=== PATIENT | female | born 1955 | race Caucasian/White ===

== ENCOUNTER 2020-04-27 08:20 | Outpatient (CLI) | payer MEDICARE ==
--- NOTE | 2020-04-27 14:44 | NM ---
NUCLEAR IMAGING BRAIN IMAGING: HISTORY: Parkinson's disease. TECHNIQUE: A DaTscan with axial tomographic images of the brain was obtained 3 hours following the intravenous a dministration of 4.8 mCi Iodine 123 Ioflupane. The patient was pretreated with 130 mcg of potassium iodide orally 1 hour prior to the injection. FINDINGS: There is loss of uptake in the posterior aspects of the striata bilaterally. IMPRESSION: Findings are consistent with Parkinsonian syndrome. POS: AH
== END 2020-04-27 08:21 | disposition home or self-care (01) ==
LOC: NM 08:20
PROVIDERS: ATTEND Psychiatry & Neurology Neurology
DX: G20 Parkinson's disease (principal)
CPT/HCPCS: 78803; A9584

== ENCOUNTER 2020-05-09 09:50 | Outpatient (CLI) | payer MEDICARE | END 2020-05-09 09:51 | disposition home or self-care (01) | LOC: DTY/OP 09:50 | PROVIDERS: ATTEND Specialist | DX: Z01.818 Encounter for other preprocedural examination (principal); E66.01 Morbid (severe) obesity due to excess calories | CPT/HCPCS: 97802 ==

== ENCOUNTER 2020-05-14 12:32 | Outpatient (CLI) | payer MEDICARE, OTHER ==
[2020-05-15 11:07] LABS: SARS-CoV-2 MS2 Positive; SARS-CoV-2 N Gene Negative; SARS-CoV-2 S Gene Negative; SARS-CoV-2 by NAA Not Detected (NotDetected); SARS-CoV-2 orf1ab Negative
== END 2020-05-14 12:33 | disposition home or self-care (01) ==
LOC: LABBT 12:32
PROVIDERS: ATTEND Specialist
DX: E66.01 Morbid (severe) obesity due to excess calories (principal); Z20.828 Contact with and (suspected) exposure to other viral communicable diseases
CPT/HCPCS: 87635; U0003

== ENCOUNTER 2020-05-17 09:31 | Outpatient (CLI) | payer MEDICARE ==
--- NOTE | 2020-05-17 13:51 | RAD ---
BIPHASIC UPPER GI: 05/17/20 HISTORY: Morbid obesity due to excess calories. Patient had a vertical sleeve gastrectomy three years ago. FINDINGS: Swallowing is grossly normal. There is unobstructed flow of contrast from the esophagus into the stom ach, duodenum and proximal jejunum. There are tertiary contractions in the esophagus. No obstructing mass, stricture or diverticulum is seen in the esophagus, stomach, and duodenum. A small hiatal herni a is noted. IMPRESSION: 1. Presbyesophagus. 2. Hiatal hernia. POS: NURYS
== END 2020-05-17 09:32 | disposition home or self-care (01) ==
LOC: RAD 09:31
PROVIDERS: ATTEND Specialist
DX: E66.01 Morbid (severe) obesity due to excess calories (principal); K22.8 Other specified diseases of esophagus; K44.9 Diaphragmatic hernia without obstruction or gangrene
CPT/HCPCS: 74246

== ENCOUNTER 2020-05-21 09:24 | Outpatient (CLI) | payer MEDICARE ==
--- NOTE | 2020-05-21 10:37 | MRI ---
EXAM: MRI right shoulder PROVIDED CLINICAL HISTORY: Pain COMPARISON: None FINDINGS: There is partial thickness undersurface tearing involving the insertional supraspinatus tendon, invol ving approximately 50% of tendon fiber thickness. There is retraction to about the level of the acromion. Associated granulation tissue formation. The components of the rotator cuff appear otherwis e intact. The long head biceps tendon appears intact and normally located. The amount of fluid within the glenohumeral joint appears physiologic. There is signal alteration in the superior labrum suspicious for SLAP tear. No focal full-thickness chondral defect is evident. Subcortical cystlike change is seen at the inferior glenoid Acromioclavicular joint osteoarthrosis is demonstrated with mild mass effect upon the subjacent supra spinatus. There is a physiologic amount of fluid within the subacromial subdeltoid bursa. Rotator cuff muscular volume appears preserved. No focal concerning regional marrow or muscular signa l abnormality is evident. IMPRESSION: 1. Partial thickness undersurface tear involving supraspinatus tendon, involving approximately 50% of tendon fiber thickness. 2. Findings suspicious for SLAP tear. 3. Acromioclavicular joint osteoarthrosis.
== END 2020-05-21 09:25 | disposition home or self-care (01) ==
LOC: BICMRI 09:24
PROVIDERS: ATTEND Orthopaedic Surgery
DX: M25.511 Pain in right shoulder (principal); M75.111 Incomplete rotator cuff tear or rupture of right shoulder, not specified as traumatic; M19.011 Primary osteoarthritis, right shoulder

== ENCOUNTER 2020-06-18 07:11 | Outpatient (CLI) | payer MEDICARE, OTHER ==
[2020-06-19 00:33] LABS: SARS-CoV-2 MS2 Positive; SARS-CoV-2 N Gene Negative; SARS-CoV-2 S Gene Negative; SARS-CoV-2 by NAA Not Detected (NotDetected); SARS-CoV-2 orf1ab Negative
== END 2020-06-18 07:12 | disposition home or self-care (01) ==
LOC: LABBT 07:11
PROVIDERS: ATTEND Specialist
DX: E11.65 Type 2 diabetes mellitus with hyperglycemia (principal); I10 Essential (primary) hypertension; E66.01 Morbid (severe) obesity due to excess calories; Z20.828 Contact with and (suspected) exposure to other viral communicable diseases
CPT/HCPCS: 87635; U0003

== ENCOUNTER 2020-06-18 15:15 | Inpatient (IN) | payer MEDICARE ==
[2020-06-20 09:31] VITALS: BMI 39.9
[2020-06-21] MEDS ORDERED: Scopolamine 1.5 mg/72 hour Patch ONE (10:18)
[2020-06-21] MEDS ORDERED: Acetaminophen 500 MG TAB ONE (10:18)
[2020-06-21] MEDS ORDERED: Heparin 5,000 UNITS/ML VIAL ONE (10:18)
[2020-06-21] MEDS ORDERED: cefOXitin Sodium/Dextrose 2 GM/50 ML BAG ONE ×2 (10:18→14:32)
[2020-06-21] MEDS ORDERED: Ketorolac Tromethamine 30 MG/ML VIAL ONE (10:18)
[2020-06-21 10:35] LABS: Anion Gap 15 mmol/L (10-20); BUN (Urea Nitrogen) 31 mg/dL (9.8-20.1); Calc. Creatinine Clearance 85 mL/min (70-130); Calcium 9.8 mg/dL (7.8-10.44); Carbon Dioxide 30 mmol/L (23-31); Chloride 99 mmol/L (98-107); Glucose 130 mg/dL (80-115); Potassium 3.9 mmol/L (3.5-5.1); Sodium 140 mmol/L (136-145)
[2020-06-21] MEDS ORDERED: Dexamethasone 20 MG/5 ML VIAL ONE (11:11)
[2020-06-21] MEDS ORDERED: Rocuronium Bromide 10 MG/ML (10ML VIAL) ONE (11:11)
[2020-06-21] MEDS ORDERED: PHENYLEPHRINE-NS 100 MCG/ML 10 ML SYRINGE ONE (11:11)
[2020-06-21] MEDS ORDERED: Esmolol 100 MG/10 ML VIAL ONE (11:11)
[2020-06-21] MEDS ORDERED: Lidocaine 1% PF 5 ML VIAL ONE (11:11)
[2020-06-21] MEDS ORDERED: Glycopyrrolate 0.2 MG/ML 5 ML SYRINGE ONE (11:11)
[2020-06-21] MEDS ORDERED: PROPOFOL 200 MG/20 ML VIAL ONE (11:11)
[2020-06-21] MEDS ORDERED: Ondansetron PF 4 MG/2 ML Vial ONE (11:11)
[2020-06-21] MEDS ORDERED: SUGAMMADEX SODIUM 200 MG/2 ML VIAL ONE (11:34)
[2020-06-21] MEDS ORDERED: Fentanyl 250 MCG/5 ML VIAL ONE (11:34)
[2020-06-21] MEDS ORDERED: Bupivacaine 0.25% HCL 30 ML VIAL ONE (11:47)
[2020-06-21] MEDS ORDERED: Lidocaine 1% w/Epinephrine 1:100K 20 ML VIAL ONE (11:47)
[2020-06-21] MEDS ORDERED: Promethazine HCl 25 MG/ML VIAL IM PRN ×3 (14:59→17:13)
[2020-06-21] MEDS ORDERED: Promethazine HCl 25 MG/ML VIAL SLOW IVP PRN ×2 (14:59→15:43)
[2020-06-21] MEDS ORDERED: Ondansetron HCl/PF 4 MG/2 ML Vial IVP PRN ×2 (14:59→15:43)
[2020-06-21] MEDS ORDERED: Meperidine HCl/PF 25 MG/ML VIAL SLOW IVP PRN (15:43)
[2020-06-21] MEDS ORDERED: HYDROmorphone 2 MG/ML VIAL SLOW IVP PRN (15:43)
[2020-06-21] MEDS ORDERED: PACU-Morphine 4MG/ML VIAL SLOW IVP PRN (15:43)
[2020-06-21] MEDS ORDERED: Fentanyl 100 MCG/2 ML VIAL ONE (16:36)
[2020-06-21] MEDS ORDERED: Morphine 2 MG/ML VIAL SLOW IVP PRN (17:13)
[2020-06-21] MEDS ORDERED: Dextrose 5% in Water 1,000 ML IV PRN (17:13)
[2020-06-21] MEDS ORDERED: Ondansetron PF 4 MG/2 ML Vial IVP PRN (17:13)
[2020-06-21] MEDS ORDERED: diphenhydrAMINE 50 MG/ML VIAL IVP PRN (17:13)
[2020-06-21] MEDS ORDERED: Morphine 4 MG/ML VIAL SLOW IVP PRN (17:13)
[2020-06-21] MEDS ORDERED: Hydrocodone-Acetamin 15 ML UDCUP PO PRN (17:13)
[2020-06-21] MEDS ORDERED: hydrALAZINE 20 MG/ML VIAL SLOW IVP PRN (17:13)
[2020-06-21] MEDS ORDERED: Dextrose 50% Abboject 50 ML SYRINGE SLOW IVP PRN (17:13)
[2020-06-21] MEDS: 1/2 NS w/KCL 20 mEq 1,000 ML IV SCH (18:29)
[2020-06-21] MEDS: Ketorolac Tromethamine 30 MG/ML VIAL IVP SCH ×2 (18:29→23:32)
[2020-06-21] MEDS ORDERED: Artificial Tear Sol 15 ML BOT EA EYE PRN (18:56)
[2020-06-21] MEDS ORDERED: Ezetimibe 10 MG TAB PO SCH (21:00)
[2020-06-21] MEDS ORDERED: Enoxaparin Sodium 40 MG/0.4 ML SYRINGE SC SCH (21:00)
[2020-06-21] MEDS ORDERED: Gabapentin 300 MG CAP PO SCH (21:00)
[2020-06-21] MEDS: Carbidopa/Levodopa 25-100 mg Tablet PO SCH (21:42)
[2020-06-21] MEDS: Insulin Regular 300 UNITS/3 ML VIAL SC PRN (22:25)
[2020-06-22] MEDS: 1/2 NS w/KCL 20 mEq 1,000 ML IV SCH ×2 (01:40→09:22)
[2020-06-22] MEDS: Ketorolac Tromethamine 30 MG/ML VIAL IVP SCH ×2 (05:55→11:30)
[2020-06-22 07:12] LABS: #Lymphocytes 2.3 thou/uL (1.20-3.40); #Monocytes 0.9 thou/uL (0.11-0.59); #Neutrophils 5.9 thou/uL (1.40-6.50); %Basophils 0.3 % (0.0-1.0); %Eosinophils 0.2 % (0.0-10.0); %Lymphocytes 24.6 % (21.0-51.0); %Monocytes 10.1 % (0.0-10.0); %Neutrophils 64.8 % (42.0-75.0); Mean Corpuscular Hemoglobin 29.3 pg (27.0-31.0); Mean Corpuscular Volume 88.6 fL (78.0-98.0); Mean Platelet Volume 7.3 fL (7.4-10.4); Platelet Count 198 thou/uL (130-400); RBC Distribution Width 12.3 % (11.5-14.5); Red Blood Cell (RBC) Count 4.11 mill/uL (4.20-5.40); White Blood Cell (WBC) Count 9.2 thou/uL (4.8-10.8)
--- NOTE | 2020-06-22 07:18 | EKG ---
Test Reason : PREOP Blood Pressure : / mmHG Vent. Rate : 080 BPM Atrial Rate : 080 BPM P-R Int : 148 ms QRS Dur : 096 ms QT Int : 408 ms P-R-T Axes : 041 101 044 degrees QTc Int : 470 ms Normal sinus rhythm Inferior-posterior infarct , age undetermined Abnormal ECG Confirmed by DR. Lamin MCLAUGHLIN ([id number]) on 06/22/2020 7:18:27 AM Referred By: LALA Confirmed By:DR. Lamin MCLAUGHLIN
[2020-06-22 07:34] LABS: Anion Gap 16 mmol/L (10-20); BUN (Urea Nitrogen) 35 mg/dL (9.8-20.1); Calc. Creatinine Clearance 83 mL/min (70-130); Calcium 8.3 mg/dL (7.8-10.44); Carbon Dioxide 26 mmol/L (23-31); Chloride 101 mmol/L (98-107); Glucose 134 mg/dL (80-115); Potassium 4.5 mmol/L (3.5-5.1); Sodium 138 mmol/L (136-145)
[2020-06-22] MEDS: Carbidopa/Levodopa 25-100 mg Tablet PO SCH (08:01)
[2020-06-22] MEDS ORDERED: Aripiprazole 10 MG TAB PO SCH (09:00)
[2020-06-22] MEDS ORDERED: Pantoprazole 40 MG VIAL IVP SCH (09:00)
[2020-06-22] MEDS ORDERED: DULoxetine 60 MG CAP PO SCH (09:00)
[2020-06-22 11:14] VITALS: BP 99/64; TEMP 98.2
[2020-06-22] MEDS: Insulin Regular 300 UNITS/3 ML VIAL SC PRN (11:30)
--- NOTE | 2020-06-25 14:51 | OP ---
DATE OF PROCEDURE: 06/21/2020 PREOPERATIVE DIAGNOSIS: Morbid obesity. POSTOPERATIVE DIAGNOSIS: Morbid obesity. PROCEDURE PERFORMED: Revisional bariatric surgery with conversion from a laparoscopic sleeve gastrectomy to a Maria Del Rosario-en-Y gastric bypass, repair of paraesophageal hiatal hernia ANESTHESIA: General endotracheal. INDICATIONS: The patient is a 64-year-old white female. She has a history of prior laparoscopic vertical sleeve gastrectomy, which led to substantial weight loss. For variety of reasons, she has had weight regain with associated medical comorbidities. She presents at this time for revisional surgery for conversion into a gastric bypass. DESCRIPTION OF OPERATION: Informed consent was obtained. The patient was taken to the operating room, where general endotracheal anesthesia was obtained with the patient in supine position. Abdomen was prepped with ChloraPrep and draped in sterile fashion. Local anesthetic was infiltrated using a mixture of 1% lidocaine with epinephrine 0.25% Marcaine. A 5-mm supraumbilical incision was created through which a Veress needle was passed into the peritoneal cavity and pneumoperitoneum was established using carbon dioxide up to pressure of 15 mmHg. A 5-mm trocar port was passed through the same incision. Laparoscopic camera was passed this port. Under direct vision, I placed 4 additional ports including bilateral subcostal 5-mm ports, a 12-mm right paramedian port, and a 15-mm left paramedian port. The omentum was identified and reflected superiorly and split in the midline up to the transverse colon using the LigaSure device. The transverse colon was elevated and the ligament of Treitz was identified. 40 cm distally, I divided the small bowel with a single fire of the white load of the Napavine stapler. The 5 cm of the small bowel distal to the staple anastomosis was devascularized using the LigaSure. The bowel was then traced 100 cm distally and at that point, I created anastomosis between the stapled end of the biliary limb and the Maria Del Rosario limb. This was done with another firing of the white load of the Napavine stapler. The common enterotomy was then closed with a final transverse firing of the same white load of the stapler. The anastomosis was inspected and found to have excellent conformation and was hemostatic. The mesenteric defect was closed with 2 interrupted sutures of 3-0 Vicryl in [id number] fashion. The patient was placed in reverse Trendelenburg position. Marielos retractor was passed through a 5-mm epigastric incision used to elevate the left lobe of the liver. There were some minimal adhesions to the liver from her prior sleeve gastrectomy and these were easily mobilized. I first noted that the patient had a hiatal hernia. The contents were easily reducible out of the mediastinum. I dissected the hiatus circumferentially and mobilized the esophagus several centimeter into the mediastinum, such that I was able to reduce at least 3 cm of esophagus intraabdominal. The crura were dissected carefully. I closed the crural defect with a single suture of 0 Ethibond. The tissue appeared to be strong and healthy. The defect appeared to have closed appropriately with adequate laxity around the esophagus to prevent stenosis. Attention was then returned to the stomach. I began dissection 5 cm from the gastroesophageal junction along the lesser curvature and dissected through to the stapled side of the prior sleeve gastrectomy. After this was carefully dissected, I divided the sleeve at this level with a single fire of the gold load of the stapler. Her tissues appeared to be thicker than typical and I felt the gold load would be better for the tissue thickness. We then obtained the OrVil (oral anvil) device and passed the plastic tubing down the throat and this was easily visualized at the stapled end of the gastric pouch. A small gastrotomy was created and the tube was retrieved appropriately and withdrawn out the anterior abdominal wall. Unfortunately, in spite of several different maneuvers, we were never able to pass the anvil down her esophagus. I suspect that there was a stenosis at the cricopharyngeal region. The tubing pulled free from the anvil on the first attempt. On the chance that this was a Fluke event, I had decided to attempt this again. I did discern that the narrowing occurred just below the visible palpable entrance of the upper esophageal sphincter leading me to believe that there was some stenosis or narrowing in her esophagus at that level. The exact same thing happen the second time were as the tubing pulled free from the anvil without me being able to pull the anvil down into the gastric pouch. I then aborted this method of attempted anastomosis. I examined the gastric pouch. I determined that she had adequate width of her pouch (she had some degree of sleeve dilatation) that I could open the lateral aspect near the left lateral aspect of the staple line. This was done with LigaSure device immediately adjacent to the staple line. I have made the opening large enough that I could obtain the usual 25 mm anvil and passed this through this defect, bringing the spike out through the opening that had been used for the OrVil device. In this fashion, I was able to position the anvil within the upper pouch in the usual fashion. I then closed the gastrotomy that had been created with a single fire of the blue load of the Napavine stapler with buttressing strips. I then created the typical enterotomy in the devascularized segment of the Maria Del Rosario limb and passed the 25 mm EEA stapler through this, bringing the spike out antimesenteric and attaching the spike to the anvil in the gastric pouch. These two segments of bowel were approximated and the staple was fired, thus creating the anastomosis. The redundant segment of the Maria Del Rosario limb was removed with another firing of the white load of the Napavine stapler. The anastomosis was checked by insufflating this while the anastomosis was under water and there was no evidence of air leak. The staple lines were inspected and all were found to be strong and intact and all bowel appeared to be entirely viable. The gastrojejunostomy was buttressed with 3 interrupted sutures of 3-0 Vicryl. The fascia at the 15-mm port site was closed with 0 Vicryl suture using GraNee needle. I also closed the fascia at the 12-mm port site with a single interrupted suture of 0 Vicryl. All ports and instruments and the Jeferson's retractor were removed under direct vision. Pneumoperitoneum was carefully evacuated. Additional local anesthetic was infiltrated at each port site. Skin edges approximated with 4-0 Monocryl subcuticular suture. Dermabond was placed externally. There were no complications. The patient tolerated the procedure well and was taken to recovery room in stable condition. Job ID: [id number] [facility]
== END 2020-06-22 15:55 | disposition home or self-care (01) | DRG 621 ==
LOC: SURG A 06-21 09:14 → SURG B 06-21 17:19
PROVIDERS: ADMIT Specialist; ATTEND Specialist
PROC: 0D164ZA Bypass Stomach to Jejunum, Percutaneous Endoscopic Approach (ICD-10-PCS; principal; 2020-06-21)
PROC: 0BQT4ZZ Repair Diaphragm, Percutaneous Endoscopic Approach (ICD-10-PCS; 2020-06-21)
DX: E66.01 Morbid (severe) obesity due to excess calories (principal); K44.9 Diaphragmatic hernia without obstruction or gangrene; Z20.828 Contact with and (suspected) exposure to other viral communicable diseases; I10 Essential (primary) hypertension; E78.5 Hyperlipidemia, unspecified; J30.2 Other seasonal allergic rhinitis; E11.9 Type 2 diabetes mellitus without complications; M19.90 Unspecified osteoarthritis, unspecified site; F41.9 Anxiety disorder, unspecified; F32.9 Major depressive disorder, single episode, unspecified; F43.10 Post-traumatic stress disorder, unspecified; Z87.891 Personal history of nicotine dependence; Z79.4 Long term (current) use of insulin; Z79.899 Other long term (current) drug therapy; Z68.39 Body mass index [BMI] 39.0-39.9, adult; Z99.89 Dependence on other enabling machines and devices
CPT/HCPCS: 36415; 36416; 80048; 85025; 87635; 93005; 93010; J0694; J1100; J1644; J1650; J1815; J1885; J2405; J2704; J3010; J3480; S0020; U0003

== ENCOUNTER 2021-10-18 09:52 | Outpatient (CLI) | payer MEDICARE | END 2021-10-18 09:53 | disposition home or self-care (01) | LOC: BICMAMMO 09:52 | PROVIDERS: ATTEND Internal Medicine | DX: Z12.31 Encounter for screening mammogram for malignant neoplasm of breast (principal); Z98.890 Other specified postprocedural states; Z80.3 Family history of malignant neoplasm of breast | CPT/HCPCS: 77063; 77067 ==

== ENCOUNTER 2023-08-13 10:50 | Outpatient (CLI) | payer MEDICARE | END 2023-08-13 10:51 | disposition home or self-care (01) | LOC: BICMAMMO 10:50 | PROVIDERS: ATTEND Family Medicine | DX: Z12.31 Encounter for screening mammogram for malignant neoplasm of breast (principal); M85.88 Other specified disorders of bone density and structure, other site; M81.0 Age-related osteoporosis without current pathological fracture; Z80.3 Family history of malignant neoplasm of breast; Z98.890 Other specified postprocedural states | CPT/HCPCS: 77063; 77067; 77080 ==

== ENCOUNTER 2023-08-21 13:48 | Outpatient (CLI) | payer MEDICARE | END 2023-08-21 13:49 | disposition home or self-care (01) | LOC: BICRAD 13:48 | PROVIDERS: ATTEND Family Medicine | DX: M54.50 Low back pain, unspecified (principal); M47.816 Spondylosis without myelopathy or radiculopathy, lumbar region; M41.9 Scoliosis, unspecified; D25.9 Leiomyoma of uterus, unspecified | CPT/HCPCS: 72100 ==

== ENCOUNTER 2024-08-19 09:49 | Outpatient (CLI) | payer MEDICARE ==
[2024-08-19 12:47] LABS: #Basophils 0.04 10x3/uL (0.0-0.2); %Basophils 0.5 % (0.0-1.0); %Eosinophils 2.5 % (0.0-10.0); %Lymphocytes 28.3 % (21.0-51.0); %Monocytes 7.7 % (0.0-10.0); %Neutrophils 60.9 % (42.0-75.0); Hematocrit 32.8 % (36.0-47.0); Hemoglobin 9.4 g/dL (12.0-16.0); Mean Corpuscular HGB CONC 28.7 g/dL (32.0-36.0); Mean Corpuscular Hemoglobin 20.5 pg (27.0-31.0); Mean Corpuscular Volume 71.6 fL (78.0-98.0); Mean Platelet Volume 9.5 fL (7.4-10.4); Platelet Count 253 10x3/uL (130-400); RBC Distribution Width 16.9 % (11.5-14.5); Red Blood Cell (RBC) Count 4.58 mill/uL (4.20-5.40)
[2024-08-19 12:50] LABS: Anion Gap 13 mmol/L (10-20); BUN (Urea Nitrogen) 17 mg/dL (9.8-20.1); Calc. Creatinine Clearance 0 mL/min (70-130); Calcium 9.1 mg/dL (7.8-10.44); Carbon Dioxide 27 mmol/L (23-31); Chloride 103 mmol/L (98-107); Estimated GFR 93; Glucose 139 mg/dL (83-110); Potassium 4.3 mmol/L (3.5-5.1); Sodium 139 mmol/L (136-145)
[2024-08-19 13:22] LABS: Anisocytosis SLIGHT = 6-15 cells HPF (0-5); Band 2 % (5-11); Hypochromia SLIGHT = 6-15 cells HPF (0-5); Lymphocytes 23 % (21-51); Monocytes 4 % (0-10); Neutrophil 71 % (42-75); Ovalocytes SLIGHT = 2-5 cells HPF (0-1); Platelet Adequacy Comment Platelets Normal; Polychromasia SLIGHT = 2-3 cells HPF (0-2)
== END 2024-08-19 09:50 | disposition home or self-care (01) ==
LOC: LABBT 09:49
PROVIDERS: ATTEND Orthopaedic Surgery Hand Surgery
DX: Z01.818 Encounter for other preprocedural examination (principal); G56.02 Carpal tunnel syndrome, left upper limb; G56.12 Other lesions of median nerve, left upper limb
CPT/HCPCS: 93005; 93010

== ENCOUNTER 2025-05-11 14:46 | Emergency (ER) | payer MEDICARE ==
[2025-05-11] MEDS ORDERED: CEFAZOLIN 2 GM VIAL ONE (17:45)
[2025-05-11 17:52] LABS: #Basophils 0.04 10x3/uL (0.0-0.2); #Eosinophils 0.12 10x3/uL (0.0-0.7); #Monocytes 0.60 10x3/uL (0.11-0.59); #Neutrophils 4.13 10x3/uL (1.40-6.50); %Basophils 0.6 % (0.0-1.0); %Eosinophils 1.7 % (0.0-10.0); %Lymphocytes 29.3 % (21.0-51.0); %Monocytes 8.6 % (0.0-10.0); %Neutrophils 59.5 % (42.0-75.0); Hematocrit 39.6 % (36.0-47.0); Hemoglobin 12.6 g/dL (12.0-16.0); Mean Corpuscular Hemoglobin 28.3 pg (27.0-31.0); Mean Corpuscular Volume 88.8 fL (78.0-98.0); Platelet Count 193 10x3/uL (130-400); Red Blood Cell (RBC) Count 4.46 mill/uL (4.20-5.40); White Blood Cell (WBC) Count 6.94 10x3/uL (4.8-10.8)
[2025-05-11 18:12] LABS: ALT (SGPT) 22 U/L (Less than 34); AST (SGOT) 33 U/L (11-34); Albumin 3.7 g/dL (3.1-4.5); Alkaline Phosphatase 104 U/L (40-110); Anion Gap 14 mmol/L (10-20); BUN (Urea Nitrogen) 19 mg/dL (9.8-20.1); Bilirubin, Total 0.7 mg/dL (0.3-1.2); Calc. Creatinine Clearance 0 mL/min (70-130); Calcium 9.5 mg/dL (7.8-10.44); Carbon Dioxide 28 mmol/L (23-31); Chloride 98 mmol/L (98-107); Globulin 3.2 g/dL (2.4-3.5); Glucose 231 mg/dL (83-110); Potassium 3.6 mmol/L (3.5-5.1); Sodium 136 mmol/L (136-145)
== END 2025-05-11 18:50 | disposition home or self-care (01) ==
LOC: ERS 14:46
DX: L03.115 Cellulitis of right lower limb (principal); E11.9 Type 2 diabetes mellitus without complications; I10 Essential (primary) hypertension; K21.9 Gastro-esophageal reflux disease without esophagitis; Z79.899 Other long term (current) drug therapy
CPT/HCPCS: 80053; 85025; 96374